=== PATIENT | male | born 2000 | race African-American/Black ===

== ENCOUNTER → 2024-12-22 | Outpatient (CLI) | payer BC ==
[2024-12-22 15:07] LABS: Basophils # (A) 0.05 X 10*3/uL (0.00-0.10); Basophils % (A) 0.9 %; Eosinophils # (A) 0.01 X 10*3/uL (0.04-0.35); Eosinophils % (A) 0.2 %; HCT 50.3 % (39.6-50.0); HGB 17.1 g/dL (13.0-17.0); Immature Grans, Automated 0.30 %; Lymphocytes # (A) 0.75 X 10*3/uL (0.90-5.00); Lymphocytes % (A) 13.0 %; MCH 30.4 pg (27.0-32.0); MCHC 34.0 g/dL (32.0-37.0); MCV 89.5 FL (80.0-97.0); Monocytes # (A) 0.37 X 10*3/uL (0.20-1.00); Monocytes % (A) 6.4 %; NRBC Per 100 WBC 0 X 10*3/uL (0.00-0.01); Neutrophils # (A) 4.57 X 10*3/uL (1.80-7.70); Neutrophils % (A) 79.2 %; Platelet Count 232 X 10*3/uL (140-440); RBC 5.62 X 10*6/uL (4.40-5.60); RDW 12.2 % (11.5-14.5); WBC 5.77 X 10*3/uL (4.50-10.00)
[2024-12-22 15:47] LABS: ALT 14 U/L (10-49); AST 16 U/L (14-35); Albumin 5.2 g/dL (3.8-4.9); Albumin/Globulin Ratio 2.08 Ratio (1.60-3.17); Alkaline Phosphatase 82 U/L (41-126); Anion Gap 12.20 mmol/L (4.00-12.00); BUN/Creat Ratio 7.70 Ratio (12.00-20.00); Blood Urea Nitrogen 7.7 mg/dL (9.0-27.0); Calcium 10.0 mg/dL (8.7-10.3); Carbon Dioxide 24.8 mmol/L (21.6-31.8); Chloride 104 mmol/L (96-109); Cholesterol 148.00 mg/dL (0.00-200.00); Globulin 2.5 g/dL (1.6-3.3); Glucose 106 mg/dL (70-110); HDL Cholesterol 65.10 mg/dL (40.00-60.00); LDL Cholesterol,Calculated 73.1 mg/dL (0.0-131.0); Potassium 3.5 mmol/L (3.5-5.5); Sodium 141 mmol/L (135-145); Total Protein 7.7 g/dL (6.2-8.2); Triglycerides 49.10 mg/dL (0.00-149.00); VLDL Calculation 9.82 mg/dL (5.00-40.00)
[2024-12-22 16:55] LABS: HSV I IgG Interp Negative (Negative); HSV II IgG Interp Negative (Negative)
[2024-12-22 19:07] LABS: HIV 2 AB Non-Reactive (Non-Reactive); HIV AB P24 Non-Reactive (Non-Reactive); HIV P24 AG Non-Reactive (Non-Reactive)
== END | disposition home or self-care (01) ==
LOC: LABWHC1 11:39
PROVIDERS: ATTEND Family Medicine
DX: Z00.00 Encounter for general adult medical examination without abnormal findings (principal); N50.811 Right testicular pain; N50.812 Left testicular pain; R30.0 Dysuria
CPT/HCPCS: 36415; 80053; 80061; 84443; 85025; 86695; 86696; 86780; 87390

== ENCOUNTER → 2025-01-08 | Outpatient (CLI) | payer BC ==
--- NOTE | 2025-01-08 10:13 | US ---
EXAMINATION TYPE: US pelvic limited DATE OF EXAM: 01/08/2025 COMPARISON: NONE CLINICAL INDICATION: Male, 24 years old with history of [id number] PAIN; Male pelvis, pt states prelvic p ain that has recently subsided TECHNIQUE: Transabdominal (TA). Grayscale and color Doppler imaging of the pelvis FINDINGS: Bladder volume: 121.9 mL Post-Void bladder volume: 127.2 mL Abnormal post void, no free fluid visualized within male pelvis IMPRESSION: Large postvoid residual. [facility], , 01/08/2025 10:10 AM
--- NOTE | 2025-01-08 10:32 | US ---
EXAMINATION TYPE: US scrotum with doppler. DATE OF EXAM: 01/08/2025 COMPARISON: NONE CLINICAL INDICATION: Male, 24 years old with history of N50.812 LEFT TESTICULAR PAIN; Pt states testi cular pain that has recently subsided TECHNIQUE: Grayscale, color Doppler and spectral Doppler imaging of the scrotum. FINDINGS: EXAM MEASUREMENTS: TESTICLES: Right Testicle: 3.4 x 1.9 x 2.7 cm Left Testicle: 3.5 x 2.1 x 2.8 cm EPIDIDYMIS HEAD: Right Epididymis: 1.0 cm Left Epididymis: 0.9 cm Doppler performed to assess for testicular vascularity; good bilateral color flow and spectral wavefo clare are seen. There is no evidence of testicular torsion. Presence of hydroceles: No Presence of varicoceles: No No abnormality visualized at this time IMPRESSION: 1. No evidence for acute process. 2. No evidence for intratesticular mass. 3. Appropriate arterial and venous spectral waveforms to the testes. [facility], , 01/08/2025 10:29 AM
== END | disposition home or self-care (01) ==
LOC: RADUSWWP 09:03
PROVIDERS: ATTEND Internal Medicine
DX: N50.812 Left testicular pain (principal); R39.198 Other difficulties with micturition
CPT/HCPCS: 76857; 76870; 93975

== ENCOUNTER → 2025-01-15 | Outpatient (CLI) | payer BC ==
--- NOTE | 2025-01-15 20:47 | CA ---
Stress Echo Report Jocelyn Hassan Age: 24 Gender: M : 2000 Exam Date: 01/15/2025 11:05 Exam Location: [place] [facility] Ht (in): 66 Wt (lb): 128 Ordering Physician: Angelo Guadarrama DO Referring Physician: Darby Snyder [facility] Accountant Controller: ADAM TRENT Technologist Procedure CPT: Indication: R07.89 Atypical Chest Pain ICD-9 Codes: Rhythm: Patient History: Cardiac Medications: NONE,,,,, Medications in past 24 hours: Contrast: Definity Stress Results Protocol: David Total dose(mL): 2 Exercise Duration (min:sec): 10:[address] Depression (mm): Angina Score: [place] Score: METS: 11.7 Resting HR: 85 Resting BP: 153 / 106 Peak HR: 184 Peak BP: 200 / 110 Max Predicted HR: 196 94 % Max Predicted HR Target HR: 167 Double Product: [id number] Stress Summary: BP Response: Reason for Termination: MAX EXERTION/TARGET HR Cardiac Symptoms: NO SYMPTOMS ECG Analysis Resting ECG: Normal sinus rhythm, right bundle branch block Stress ECG: No evidence of ischemia by ST segment analysis Arrhythmia: No sustained arrhythmias or ectopic beats Echo Analysis Resting Echo: No obvious regional wall motion abnormality at rest Peak Echo Analysis: no obvious stress-induced wall motion abnormality MEASUREMENTS (Male/Female) Normal Values CONCLUSIONS Good exercise tolerance for age achieving 11.7 METS Nonischemic ECG and echocardiographic response to treadmill exercise Mildly hypertensive at baseline. Normal hemodynamic and clinical response to treadmill exercise Dr Lc Marroquin (Electronically Signed) Final Date: 15 January 2025 20:45
== END | disposition home or self-care (01) ==
LOC: RADNMMAIN 10:40
PROVIDERS: ATTEND Internal Medicine
DX: I45.10 Unspecified right bundle-branch block (principal); I10 Essential (primary) hypertension
CPT/HCPCS: 93351; Q9957